=== PATIENT | female | born 1960 | race Caucasian/White ===

== ENCOUNTER 2023-06-20 16:22 | Inpatient (IN) | payer MEDICARE, SELFPAY ==
[2023-06-20] VITALS (7 sets, daily range): BP systolic 116–147; BP diastolic 71–108; PULSE 80–96; RESP 14–18; TEMP 36.3–36.7; O2SAT 92–94; BMI 31.8; BMI 32.3
[2023-06-20 18:04] LABS: Absolute Neutrophil Count 4.7 X10^3/uL (2.0-7.7); Basophil# 0.05 X10^3/uL; Basophil% 0.7 % (0-1); Eosinophils% 1.5 % (0-5); Hematocrit 42.9 % (37-47); Hemoglobin 13.6 g/dL (12.0-15.0); Lymphocyte % 20.9 % (19-41); Mean Corp Hgb Conc 31.7 g/dL (32-36); Mean Corpuscular Hgb 31.6 pg (27.0-32.0); Mean Corpuscular Volume 99.8 fL (81-99); Mean Platelet Vol. 10.1 fl (6.2-12.0); Monocyte# 0.42 X10^3/uL; Monocyte% 6.3 % (0-10); NRBC Flagged by Analyzer 0 % (0-5); Neutrophil % 70.3 % (47-70); Platelet Count 255 K/mm3 (150-450); RBC Distribution Width SD 50.6 fl (35.1-43.9); White Blood Count 6.7 K/mm3 (4.4-11.0)
[2023-06-20] MEDS: Mag Hydrox/Al Hydrox/Simeth 30 ML UDC PO (18:11)
--- NOTE | 2023-06-20 18:13 | NURSING ---
NO OLD EKGS
[2023-06-20 18:19] LABS: Alcohol, Blood (Medical)-Serum < 3.0 mg/dL
[2023-06-20 18:26] LABS: ALB/GLOB Ratio 1.1 RATIO (0.9-2.4); AST(SGOT) 45 U/L (15-37); Alanine Aminotransfer ALT/SGPT 40 U/L (13-56); Albumin, Serum 3.6 g/dL (3.2-5.0); Alkaline Phosphatase 219 U/L (45-117); Anion Gap 5 (5-15); BUN 6 mg/dL (7-18); BUN/Creat Ratio 6.2 RATIO (10-20); Calcium,Total 8.8 mg/dL (8.5-10.1); Chloride 104 mmol/L (98-107); Creatinine, Serum 0.97 mg/dL (0.55-1.02); EST Glomerular Filtration Rate 62 mL/min (>60); Est Glom Filt Rate - Afr Amer 74 mL/min (>60); Estimated Creatinine Clearance 62.84 ml/min; Globulin 3.3 g/dL (2.2-4.2); Glucose 118 mg/dL (74-106); Potassium 3.7 mmol/L (3.5-5.1); Protein, Total 6.9 g/dL (6.4-8.2); Sodium Level 140 mmol/L (136-145)
[2023-06-20 18:34] LABS: Lipase 12 U/L (13-75); Troponin-I HS 7 pg/mL (3.0-54.0)
--- NOTE | 2023-06-20 18:45 | EDS_ITS ---
HPI History of Present Illness Chief Complaint: Substance Abuse Informant: patient Narrative Narrative: Is a 62-year-old female with history of alcohol abuse, prior Niesen fundoplication presenting for alcohol detox. Patient states she drinks approximately 416 ounce alcoholic beverages a day. She states that she had last had 3 cans of Atilio hard lemonade this morning. She also notes for the past week she has been having chest pain that radiates up to her throat and neck and into her back every evening. It is worse with eating or drinking. She also she has been having some gurgling and rumbling of the head of her abdomen for the past 3 to 4 days. Does have a history of acid reflux. Does note a history of blood clots but is on Xarelto. States has been compliant with it. Denies any history of pancreatitis but notes that my liver is bad. Denies any difficulty breathing. Denies any recent falls. Denies any history of DTs. [facility] Medical History COPD (chronic obstructive pulmonary disease) Home Medications cholecalciferol (vitamin D3) 50 mcg (2,000 unit) capsule (D3-2000) 50 mcg PO DAILY 06/20/23 [History Last Taken Unknown] folic acid 1 mg tablet 5 mg PO QHS 06/20/23 [History Last Taken Unknown] lisinopril 10 mg tablet 10 mg PO DAILY 06/20/23 [History Last Taken Unknown] promethazine 25 mg tablet 25 mg PO TID PRN nausea and vomiting 06/20/23 [History Last Taken Unknown] rivaroxaban 20 mg tablet (Xarelto) 20 mg PO DAILY 06/20/23 [History Last Taken Unknown] Allergy/AdvReac Type Severity Reaction Status Date / Time No Known Allergies Allergy Verified 06/20/23 17:31 Social History Smoking Status: Former smoker ROS ROS ED Constitutional Constitutional ED: Denies chills or fever(s) Cardiovascular Cardiovascular: Reports chest pain; Denies palpitations Respiratory/Chest Respiratory/Chest: Denies cough or dyspnea Gastrointestinal Gastrointestinal: Reports nausea; Denies abdominal pain, diarrhea or vomiting Musculoskeletal Musculoskeletal: Denies arthralgias or myalgias Integumentary Denies rash Neurologic Neurologic: Denies headache(s) Psychiatric Psychiatric: Reports other Details: Alcohol abuse ; Denies anxiety EXAM Physical Exam Const Vital Signs: 06/20/23 16:24 06/20/23 17:48 06/20/23 18:23 Temperature 97.4 F L Temperature Source Temporal Pulse Rate 96 94 87 Respiratory Rate 16 18 18 Blood Pressure 127/108 H 147/81 H 131/75 H Blood Pressure Mean 114 103 93 Pulse Ox 94 93 93 Oxygen Delivery Method Room Air Room Air Room Air 06/20/23 20:01 Temperature 98.1 F Temperature Source Pulse Rate 85 Respiratory Rate 18 Blood Pressure 116/73 Blood Pressure Mean 87 Pulse Ox 92 Oxygen Delivery Method Positive well nourished and well developed General Appearance ED: well developed and NAD HEENT Reports moist mucous membranes Eyes PERRL Neck supple and no JVD Chest Wall inspection of chest normal and palpation of chest normal Chest Narrative: No chest wall crepitus or reproducible tenderness on exam Resp normal respiratory effort and clear to auscultation bilaterally Cardio regular rate, regular rhythm and no murmurs GI soft to palpation, non-tender and non-distended Neuro oriented x3 Neuro Narrative: No tremor noted, walks with a cane Sensorium / Orientation: alert Psych mental status grossly normal and thought process normal Skin General Skin Exam: Negative for jaundice Lesions: no lesions Rashes: no rashes MDM MDM MDM Narrative Medical decision making narrative: Evaluate for request of alcohol detox as well as chest pain. Chest pain is been occurring every evening for the past week and radiates to her neck. Seems to be worsened with eating and drinking. EKG as well as cardiac workup including chest x-ray and troponin were ordered however she is also given a GI cocktail with improvement of her symptoms. Patient has a normal CBC. CMP is remarkable for a mild elevation of her AST as well as alkaline phosphatase of 219. Lipase is normal so less likely suspect pancreatitis as a cause of her symptoms. Alcohol level is currently negative consistent with her report of not drinking since this morning. EKG does not show any acute ischemia. Patient be admitted for addiction medicine for alcohol dependency. This time she does not have signs of acute withdrawal and does not require IV Ativan. Case is discussed admitting physician, Dr. Dorantes. Lab Data Attestation: I reviewed the patient's lab results. Labs: Laboratory Results - last 24 hr 06/20/23 06/20/23 17:56 18:50 WBC 6.7 RBC 4.30 Hgb 13.6 Hct 42.9 MCV 99.8 H MCH 31.6 MCHC 31.7 L RDW Std Deviation 50.6 H RDW Coeff of Clemente 14.0 Plt Count 255 MPV 10.1 Immature Gran % (Auto) 0.300 Neut % (Auto) 70.3 H Lymph % (Auto) 20.9 [place] % (Auto) 6.3 Eos % (Auto) 1.5 Baso % (Auto) 0.7 Absolute Neuts (auto) 4.7 Absolute Lymphs (auto) 1.40 Nucleated RBC % 0 Sodium 140 Potassium 3.7 Chloride 104 Carbon Dioxide 31.0 Anion Gap 5 BUN 6 L Creatinine 0.97 Estim Creat Clear Calc 62.84 Est GFR (MDRD) Af Amer 74 Est GFR (MDRD) Non-Af 62 BUN/Creatinine Ratio 6.2 L Glucose 118 H Calcium 8.8 Total Bilirubin 0.50 AST 45 H ALT 40 Alkaline Phosphatase 219 H Troponin I High Sens 7 Total Protein 6.9 Albumin 3.6 Globulin 3.3 Albumin/Globulin Ratio 1.1 Lipase 12 L Urine Opiates Screen NEGATIVE Urine Methadone Screen NEGATIVE Ur Barbiturates Screen NEGATIVE Ur Phencyclidine Scrn NEGATIVE Ur Amphetamines Screen NEGATIVE MDMA (Ecstasy) Screen NEGATIVE U Benzodiazepines Scrn NEGATIVE Urine Cocaine Screen NEGATIVE U Cannabinoids Screen NEGATIVE Ur Drug Screen Comment Ethyl Alcohol < 3.0 Radiography Chest X-Ray - ED: 1 View, Read by ED Physician, Read by Radiologist and No Acute Disease Diagnostic Testing: Clinical Impression(s) from Imaging Studies Chest X-Ray 06/20/23 18:55 IMPRESSION: No radiographic evidence of acute cardiopulmonary disease. Electronically Signed: Hernandez Arteaga DO at 19:12 EST Reading Location ID and State: [facility] / [place] Tel [phone], Service support , Rhythm Strip Rhythm Strip: Sinus Rhythm Rate: 88 Ectopy: None EKG Initial EKG: Attestation: I personally reviewed and interpreted this EKG as follows: Interpretation: Sinus Rhythm Comments: Sinus rhythm at a rate of 89 bpm Normal axis Normal intervals Normal ST segments Prior EKG tracings: not available for review Discharge Plan Dx/Rx/DC Orders Clinical Impression: Alcohol withdrawal, Atypical chest pain Disposition Disposition: Acute Care Hospital [facility] Discharge Date/Time: 06/20/23 21:14
--- NOTE | 2023-06-20 18:55 | RAD_ITS ---
INDICATION: chest pain EXAMINATION/TECHNIQUE: X-RAY - XR Chest 2 Views COMPARISON: FINDINGS: LINES/DEVICES: None. LUNGS: No consolidation, edema or effusion. No pneumothorax. MEDIASTINUM AND CARDIOVASCULAR STRUCTURES: Cardiac silhouette not enlarged. Central airways and mediastinal contour are unremarkable. BONES AND SOFT TISSUES: Unremarkable. RAD/Chest PA and Lateral IMPRESSION: No radiographic evidence of acute cardiopulmonary disease. Electronically Signed: Hernandez Arteaga DO at 19:12 [facility] Reading Location ID and State: [facility] / [place] Tel [phone], Service support ,
[2023-06-20 19:45] LABS: Amphetamine Urine VISTA NEGATIVE (<1000 ng/mL); Barbiturate Urine VISTA NEGATIVE (< 200 ng/mL); Benzodiazepine Urine VISTA NEGATIVE (< 200 ng/mL); Cocaine Urine VISTA NEGATIVE (< 300 ng/mL); Ecstacy Urine VISTA NEGATIVE (< 500 ng/mL); Methadone Urine VISTA NEGATIVE (< 300 ng/mL); PCP Urine VISTA NEGATIVE (< 25 ng/mL); THC Urine VISTA NEGATIVE (< 50 ng/mL); Vista UDS pH Range 6
[2023-06-20] MEDS: Pantoprazole Sodium 40 MG Tablet PO (20:06)
--- NOTE | 2023-06-20 20:36 | PCM.HP.STD ---
HPI - General General Date of Admission: 06/20/23 Date of Service: 06/20/23 Chief Complaint: Inpatient alcohol detoxification HPI Narrative JESSICA FERRARI, is a 62 F with history of prior chronic GERD s/p Jt fundoplication, pulmonary embolism on Xarelto presents to the ED for inpatient detoxification. She has a history of chronic alcohol use, uses 4 drinks 4 cans of Atilio's Harder lemonade (8% ABV) every day. Today she had 3 cans of the same. Unable to maintain sobriety at home and would like pharmacological therapy through inpatient admission At the time of presentation she had associated burning discomfort in her chest and abdomen. Troponin levels and EKG were normal. Significant improvement with GI cocktail. [facility] Medical History (Updated 06/20/23 @ 22:[address] Kenisha Dorantes MD) COPD (chronic obstructive pulmonary disease) Home Medications cholecalciferol (vitamin D3) 50 mcg (2,000 unit) capsule (D3-2000) 50 mcg PO DAILY 06/20/23 [History Last Taken Unknown] folic acid 1 mg tablet 5 mg PO QHS 06/20/23 [History Last Taken Unknown] lisinopril 10 mg tablet 10 mg PO DAILY 06/20/23 [History Last Taken Unknown] promethazine 25 mg tablet 25 mg PO TID PRN nausea and vomiting 06/20/23 [History Last Taken Unknown] rivaroxaban 20 mg tablet (Xarelto) 20 mg PO DAILY 06/20/23 [History Last Taken Unknown] Allergy/AdvReac Type Severity Reaction Status Date / Time No Known Allergies Allergy Verified 06/20/23 17:31 Social History Smoking Status: Former smoker ROS Constitutional Constitutional: Denies anorexia, change in weight, chills, fatigue, fever(s), malaise, night sweats, weakness or other Cardiovascular Cardiovascular: Denies chest pain, claudication, dyspnea on exertion, edema, lightheadedness, orthopnea, palpitations, paroxysmal nocturnal dyspnea, rapid heart rate, syncope or other Respiratory/Chest Respiratory/Chest: Denies cough, dyspnea, excessive phlegm production, hemoptysis, productive cough, shortness of breath at rest, shortness of breath with exertion, wheezing or other Gastrointestinal Gastrointestinal: Reports abdominal pain Genitourinary Genitourinary: Denies burning urination, difficulty urinating, dysuria, hematuria, nocturia, urinary frequency, urinary hesitancy, urinary incontinence, urinary urgency or other Musculoskeletal Musculoskeletal: Denies arthralgias, back pain, joint pain, joint stiffness, joint swelling, myalgias, neck pain or other Psychiatric Psychiatric: Denies anxiety, depression, homicidal ideation, suicidal ideation or other Vital Signs Vital Signs Vital Signs: 06/20/23 16:24 06/20/23 17:48 06/20/23 18:23 Temperature 97.4 F L Temperature Source Temporal Pulse Rate 96 94 87 Respiratory Rate 16 18 18 Blood Pressure 127/108 H 147/81 H 131/75 H Blood Pressure Mean 114 103 93 Pulse Ox 94 93 93 Oxygen Delivery Method Room Air Room Air Room Air 06/20/23 20:01 Temperature 98.1 F Temperature Source Pulse Rate 85 Respiratory Rate 18 Blood Pressure 116/73 Blood Pressure Mean 87 Pulse Ox 92 Oxygen Delivery Method Weight Weight: 216 lb Body Mass Index (BMI) 31.8 Physical Exam Const alert, oriented x3 and no apparent distress General Appearance: cooperative Resp normal respiratory effort Cardio regular rate Extremity normal to inspection Neuro oriented x3 Results Medical Records Data Attestation: I reviewed the patient's medical records Lab / Micro Data Attestation: I reviewed the patient's lab results. Lab results narrative: Normal 06/20/23 17:56 06/20/23 17:56 Labs: Laboratory Results - last 24 hr 06/20/23 17:56: WBC 6.7, RBC 4.30, Hgb 13.6, Hct 42.9, MCV 99.8 H, MCH 31.6, MCHC 31.7 L, RDW Std Deviation 50.6 H, RDW Coeff of Clemente 14.0, Plt Count 255, MPV 10.1, Immature Gran % (Auto) 0.300, Neut % (Auto) 70.3 H, Lymph % (Auto) 20.9, [place] % (Auto) 6.3, Eos % (Auto) 1.5, Baso % (Auto) 0.7, Absolute Neuts (auto) 4.7, Absolute Lymphs (auto) 1.40, Nucleated RBC % 0, Sodium 140, Potassium 3.7, Chloride 104, Carbon Dioxide 31.0, Anion Gap 5, BUN 6 L, Creatinine 0.97, Estim Creat Clear Calc 62.84, Est GFR (MDRD) Af Amer 74, Est GFR (MDRD) Non-Af 62, BUN/Creatinine Ratio 6.2 L, Glucose 118 H, Calcium 8.8, Total Bilirubin 0.50, AST 45 H, ALT 40, Alkaline Phosphatase 219 H, Troponin I High Sens 7, Total Protein 6.9, Albumin 3.6, Globulin 3.3, Albumin/Globulin Ratio 1.1, Lipase 12 L, Ethyl Alcohol < 3.0 06/20/23 18:50: Urine Opiates Screen NEGATIVE, Urine Methadone Screen NEGATIVE, Ur Barbiturates Screen NEGATIVE, Ur Phencyclidine Scrn NEGATIVE, Ur Amphetamines Screen NEGATIVE, MDMA (Ecstasy) Screen NEGATIVE, U Benzodiazepines Scrn NEGATIVE, Urine Cocaine Screen NEGATIVE, U Cannabinoids Screen NEGATIVE, Ur Drug Screen Comment Imagaing Radiology Impression Chest X-Ray 06/20/23 18:55 IMPRESSION: No radiographic evidence of acute cardiopulmonary disease. Electronically Signed: Hernandez Arteaga, DO at 19:12 EST Reading Location ID and State: [facility] / [place] Tel [phone], Service support , Assessment & Plan Assessment/Plan (1) Alcohol withdrawal: PLAN: Plan 1. Alcohol use disorder: Has longstanding history of chronic alcohol use, predominantly cocktails. Her last drink was this morning, will continue to monitor for any features of withdrawal. CIWA protocol has been started. Admit for further monitoring. Based on her response we will consider starting her on naltrexone to decrease her cravings. No liver injury concerning for steatosis or cirrhosis at this time. 2. Hypercoagulable status, prior history of pulm embolism: Continue home Xarelto during her hospitalization. 3. Prior history of GERD, Jt fundoplication: There is improvement with GI cocktail, will start her on omeprazole 40 mg daily, follow-up with GI as an outpatient if required upper endoscopy for further evaluation. Charges/Coding Visit Charges Inpatient E&M: 01984 Init Hosp L2
[2023-06-20] MEDS: LORazepam 1 MG Tablet 0.5 MG PO (22:28)
[2023-06-20] MEDS: Ondansetron 8 MG Tablet PO (22:31)
[2023-06-20] MEDS: traZODone 100 MG Tablet PO (23:36)
[2023-06-21] VITALS (8 sets, daily range): BP systolic 89–115; BP diastolic 53–76; PULSE 78–97; RESP 13–16; TEMP 36.3–37.4; O2SAT 64–96
[2023-06-21] MEDS: LORazepam 1 MG Tablet 0.5 MG PO ×5 (05:23→22:33)
--- NOTE | 2023-06-21 07:27 | PCM.PN.HOSP ---
Reason for Visit Reason for Visit: Diagnoses Alcohol use, unspecified with withdrawal, unspecified (06/20/23) Objective Data Objective Data Vital Signs: Vital Signs Temp Pulse Resp BP Pulse Ox O2 Del Method O2 Flow Rate 97.8 F 80 16 101/66 96 Nasal Cannula 2 06/21/23 05:10 06/21/23 05:10 06/21/23 05:10 06/21/23 05:10 06/21/23 05:10 06/21/23 05:10 06/21/23 05:10 Oxygen Flow Rate (L/min) 2 Oxygen Delivery Method Nasal Cannula Weight: 212 lb 4.882 oz Body Mass Index (BMI) 32.3 Intake & Output: Intake and Output for Last 24 Hours 06/19/23 06/20/23 06/21/23 23:59 23:59 23:59 Intake Total 100 / 100 100 / 100 Balance 100 / 100 100 / 100 Lab / Micro Data 06/21/23 11:45 06/21/23 11:45 Labs: Laboratory Results - last 24 hr 06/20/23 17:56: WBC 6.7, RBC 4.30, Hgb 13.6, Hct 42.9, MCV 99.8 H, MCH 31.6, MCHC 31.7 L, RDW Std Deviation 50.6 H, RDW Coeff of Clemente 14.0, Plt Count 255, MPV 10.1, Immature Gran % (Auto) 0.300, Neut % (Auto) 70.3 H, Lymph % (Auto) 20.9, [place] % (Auto) 6.3, Eos % (Auto) 1.5, Baso % (Auto) 0.7, Absolute Neuts (auto) 4.7, Absolute Lymphs (auto) 1.40, Nucleated RBC % 0, Sodium 140, Potassium 3.7, Chloride 104, Carbon Dioxide 31.0, Anion Gap 5, BUN 6 L, Creatinine 0.97, Estim Creat Clear Calc 62.84, Est GFR (MDRD) Af Amer 74, Est GFR (MDRD) Non-Af 62, BUN/Creatinine Ratio 6.2 L, Glucose 118 H, Calcium 8.8, Total Bilirubin 0.50, AST 45 H, ALT 40, Alkaline Phosphatase 219 H, Troponin I High Sens 7, Total Protein 6.9, Albumin 3.6, Globulin 3.3, Albumin/Globulin Ratio 1.1, Lipase 12 L, Ethyl Alcohol < 3.0 06/20/23 18:50: Urine Opiates Screen NEGATIVE, Urine Methadone Screen NEGATIVE, Ur Barbiturates Screen NEGATIVE, Ur Phencyclidine Scrn NEGATIVE, Ur Amphetamines Screen NEGATIVE, MDMA (Ecstasy) Screen NEGATIVE, U Benzodiazepines Scrn NEGATIVE, Urine Cocaine Screen NEGATIVE, U Cannabinoids Screen NEGATIVE, Ur Drug Screen Comment Radiography Diagnostic Testing: Radiology Impression Chest X-Ray 06/20/23 18:55 IMPRESSION: No radiographic evidence of acute cardiopulmonary disease. Electronically Signed: Hernandez Arteaga DO at 19:12 EST Reading Location ID and State: [facility] / [place] Tel [phone], Service support , Rhythm Strip Rhythm Strip: Sinus Rhythm Rate: 88 Ectopy: None Physical Exam Narrative Patient admitted for medical stabilization of acute alcohol withdrawal syndrome. Patient does not have hallucinations or bad dreams. No delusion. Patient motivated for alcohol rehab treatment. Physical exam General: Alert, Oriented x3, Cooperative HEENT: Atraumatic, PERRLA, EOMI, Normocephalic Oral: No Gingival or Mucosal Lesions/ Ulcerations Neck: Supple, No JVD, Negative Carotid Bruits Lungs: Air entry diminished in bilateral lung bases. No crepitation/rhonchi Cardiovascular: Regular rate, Regular Rhythm, Normal S1, Normal S2, No murmurs Abdomen: Bowel Sounds Present, Soft, Non Tender, Non-Distended : No renal angle tenderness. No suprapubic tenderness. Extremities: No edema, Capillary Refill Less than 3 Seconds Skin: No rashes, No breakdown Musculoskeletal: No Tenderness to Palpation of Joints or Extremities Neurological: Cranial nerves II-XII grossly intact, DTR 2+/4. No acute focal neurological deficit. Psych/Mental Status: Normal Affect, Appropriate. Assessment & Plan Assessment/Plan (1) Alcohol withdrawal: PLAN: Plan 62-year-old female came to ED for acute alcohol withdrawal symptoms. Patient drinks 4 cans of mikes hard lemonade, 8% alcohol every day. She had associated burning discomfort in the chest and abdomen with history of chronic GERD status post Jt's fundoplication 1. Mild acute alcohol withdrawal syndrome with history of chronic alcohol use and dependence: The patient is started on lorazepam along with other adjunctive medications as needed for medical stabilization as per order set of opioid withdrawal syndrome.Patient also on trazodone, hydroxyzine, gabapentin as needed ordered. Advised quitting alcohol. revenue accounting manager consult. Has longstanding history of chronic alcohol use, predominantly cocktails. Her last drink was this morning. CIWA protocol has been started. Admit for further monitoring. No liver injury concerning for steatosis or cirrhosis at this time. Patient was evaluated by addiction medicine by Parveen Dyer. Followed [facility] addiction recovery service. Patient met requirement for Vivitrol and ordered Vivitrol IM dose prior to discharge on Friday. 2. Hypercoagulable status, prior history of pulm embolism: Continue home Xarelto during her hospitalization. 3. Prior history of GERD, Jt fundoplication: There is improvement with GI cocktail, will start her on omeprazole 40 mg daily, follow-up with GI as an outpatient if required upper endoscopy for further evaluation. Charges/Coding Visit Charges Inpatient E&M: 70511 Subs Hosp L2
[2023-06-21] MEDS: Potassium Chloride Oral Tablet 20 MEQ 40 MEQ PO (08:37)
[2023-06-21] MEDS: Lisinopril 10 MG Tablet PO (08:37)
[2023-06-21] MEDS: Thiamine Hydrochloride 100 MG Tablet PO (08:37)
--- NOTE | 2023-06-21 11:34 | ADDICTION ---
This food writer met with PT to conduct ASAM, MSE, AUDIT assessments and to plan for d/c. PT A+Ox4 and participated actively. All assessments completed and placed in PT's chart. PT plans to f/u with [facility] for follow-up outpatient treatment and MAT services. Pt met requirements for the VIvitrol shot prior to dischard. Dr. Roth was informed and order has been placed. Pt will follow up with [facility] for monthly injections post d/c. PT did not indicate a need for transportation post d/c from [facility].
[2023-06-21 12:00] LABS: Absolute Neutrophil Count 4.1 X10^3/uL (2.0-7.7); Basophil# 0.03 X10^3/uL; Basophil% 0.5 % (0-1); Eosinophil# 0.14 X10^3/uL; Eosinophils% 2.5 % (0-5); Hematocrit 41.7 % (37-47); Hemoglobin 13.1 g/dL (12.0-15.0); Lymphocyte % 17.5 % (19-41); Mean Corp Hgb Conc 31.4 g/dL (32-36); Mean Corpuscular Hgb 32.7 pg (27.0-32.0); Mean Platelet Vol. 10.2 fl (6.2-12.0); Monocyte# 0.41 X10^3/uL; Monocyte% 7.2 % (0-10); NRBC Flagged by Analyzer 0 % (0-5); Neutrophil # 4.11 X10^3/uL (2.7-7.7); Neutrophil % 72.1 % (47-70); Platelet Count 247 K/mm3 (150-450); RBC Distribution Width CV 14.1 % (11.6-14.6); RBC Distribution Width SD 53.3 fl (35.1-43.9); Red Blood Count 4.01 M/mm3 (4.2-5.4); White Blood Count 5.7 K/mm3 (4.4-11.0)
[2023-06-21 12:17] LABS: ALB/GLOB Ratio 0.9 RATIO (0.9-2.4); AST(SGOT) 38 U/L (15-37); Alanine Aminotransfer ALT/SGPT 35 U/L (13-56); Albumin, Serum 3.1 g/dL (3.2-5.0); Alkaline Phosphatase 200 U/L (45-117); Anion Gap 3 (5-15); BUN 8 mg/dL (7-18); BUN/Creat Ratio 7.3 RATIO (10-20); Bilirubin, Direct 0.19 mg/dL (0.00-0.30); Calcium,Total 8.6 mg/dL (8.5-10.1); Chloride 106 mmol/L (98-107); EST Glomerular Filtration Rate 53 mL/min (>60); Est Glom Filt Rate - Afr Amer 65 mL/min (>60); Estimated Creatinine Clearance 53.49 ml/min; Globulin 3.3 g/dL (2.2-4.2); Glucose 138 mg/dL (74-106); Magnesium 2.2 mg/dL (1.6-2.6); Phosphorus 3.5 mg/dL (2.5-4.9); Potassium 4.5 mmol/L (3.5-5.1); Protein, Total 6.4 g/dL (6.4-8.2); Sodium Level 142 mmol/L (136-145)
[2023-06-21 12:18] LABS: International Normalized Ratio 1.1
[2023-06-21] MEDS: Rivaroxaban 20 MG Tablet PO (17:51)
[2023-06-21] MEDS: hydrOXYzine PAM 25 MG Capsule 50 MG PO (18:00)
--- NOTE | 2023-06-21 18:02 | NURSING ---
NOTHING ORDERED FOR H/A. COMMUNICATION SENT TO DR MURPHY
[2023-06-21] MEDS: Folic Acid 1 MG Tablet PO (22:33)
[2023-06-22 02:26] VITALS: BP 109/66; PULSE 79; RESP 18; TEMP 36.6; O2SAT 95
[2023-06-22] MEDS: LORazepam 1 MG Tablet 0.5 MG PO ×6 (02:27→22:14)
[2023-06-22 06:16] VITALS: BP 108/71; PULSE 87; RESP 16; TEMP 36.6; O2SAT 95
[2023-06-22 10:00] VITALS: BP 104/63; PULSE 94; RESP 14; TEMP 36.2; O2SAT 91
[2023-06-22] MEDS: Potassium Chloride Oral Tablet 20 MEQ 40 MEQ PO (10:17)
[2023-06-22] MEDS: Thiamine Hydrochloride 100 MG Tablet PO (10:18)
[2023-06-22] MEDS: Lisinopril 10 MG Tablet PO (10:18)
[2023-06-22 14:00] VITALS: BP 100/65; PULSE 85; RESP 14; TEMP 36.4; O2SAT 89; O2SAT 99
--- NOTE | 2023-06-22 14:59 | PCM.PN.HOSP ---
Reason for Visit Reason for Visit: Diagnoses Alcohol use, unspecified with withdrawal, unspecified (06/20/23) Objective Data Objective Data Vital Signs: Vital Signs Temp Pulse Resp BP Pulse Ox O2 Del Method O2 Flow Rate 97.6 F L 85 14 100/65 99 Nasal Cannula 2 06/22/23 14:00 06/22/23 14:00 06/22/23 14:00 06/22/23 14:00 06/22/23 14:00 06/22/23 14:00 06/22/23 14:00 Oxygen Flow Rate (L/min) 2 Oxygen Delivery Method Nasal Cannula Weight: 212 lb 4.882 oz Body Mass Index (BMI) 32.3 Intake & Output: Intake and Output for Last 24 Hours 06/20/23 06/21/23 06/22/23 23:59 23:59 23:59 Intake Total 100 / 100 100 / 100 Balance 100 / 100 100 / 100 Lab / Micro Data 06/21/23 11:45 06/21/23 11:45 Rhythm Strip Rhythm Strip: Sinus Rhythm Rate: 88 Ectopy: None Physical Exam Narrative Patient admitted for medical stabilization of acute alcohol withdrawal syndrome. Patient is doing well. Tremor is better. Patient does not have hallucinations or bad dreams. No delusion. Patient motivated for alcohol rehab treatment. Physical exam General: Alert, Oriented x3, Cooperative HEENT: Atraumatic, PERRLA, EOMI, Normocephalic Oral: No Gingival or Mucosal Lesions/ Ulcerations Neck: Supple, No JVD, Negative Carotid Bruits Lungs: Air entry diminished in bilateral lung bases. No crepitation/rhonchi Cardiovascular: Regular rate, Regular Rhythm, Normal S1, Normal S2, No murmurs Abdomen: Bowel Sounds Present, Soft, Non Tender, Non-Distended : No renal angle tenderness. No suprapubic tenderness. Extremities: No edema, Capillary Refill Less than 3 Seconds Skin: No rashes, No breakdown Musculoskeletal: No Tenderness to Palpation of Joints or Extremities. Tremors are improved. Neurological: Cranial nerves II-XII grossly intact, DTR 2+/4. No acute focal neurological deficit. Psych/Mental Status: Normal Affect, Appropriate. Assessment & Plan Assessment/Plan (1) Alcohol withdrawal: PLAN: Plan 62-year-old female came to ED for acute alcohol withdrawal symptoms. Patient drinks 4 cans of mikes hard lemonade, 8% alcohol every day. She had associated burning discomfort in the chest and abdomen with history of chronic GERD status post Jt's fundoplication 1. Mild acute alcohol withdrawal syndrome with history of chronic alcohol use and dependence: The patient is started on lorazepam along with other adjunctive medications as needed for medical stabilization as per order set of opioid withdrawal syndrome.Patient also on trazodone, hydroxyzine, gabapentin as needed ordered. Advised quitting alcohol. finishing manager consult. Has longstanding history of chronic alcohol use, predominantly cocktails. Her last drink was this morning. CIWA protocol has been started. Admit for further monitoring. No liver injury concerning for steatosis or cirrhosis at this time. Patient was evaluated by addiction medicine by Parveen Dyer. Followed [facility] addiction recovery service. Patient met requirement for Vivitrol and ordered Vivitrol IM dose prior to discharge on Friday. 06/22: Anticipate discharge tomorrow after Vivitrol IM injection as mentioned above. Patient will follow up with 180. 2. Hypercoagulable status, prior history of pulm embolism: Continue home Xarelto during her hospitalization. 3. Prior history of GERD, Jt fundoplication: There is improvement with GI cocktail, will start her on omeprazole 40 mg daily, follow-up with GI as an outpatient if required upper endoscopy for further evaluation. Charges/Coding Visit Charges Inpatient E&M: 85229 Subs Hosp L2
--- NOTE | 2023-06-22 15:59 | NURSING ---
DR MURPHY NOTIFIED OF APPLICATION OF O2@2L
[2023-06-22 17:32] VITALS: O2SAT 93
[2023-06-22] MEDS: Rivaroxaban 20 MG Tablet PO (18:19)
[2023-06-22 22:12] VITALS: BP 114/72; PULSE 96; RESP 18; TEMP 37; O2SAT 94
[2023-06-22] MEDS: Folic Acid 1 MG Tablet PO (22:14)
[2023-06-23] VITALS (12 sets, daily range): BP systolic 103–110; BP diastolic 67–75; PULSE 77–101; RESP 14–18; TEMP 36.4–37; O2SAT 88–98
--- NOTE | 2023-06-23 01:53 | CPS ---
Patient is non-compliant at home with CPAP but wishes to wear one during her hospital stay per RN
[2023-06-23] MEDS: LORazepam 1 MG Tablet 0.5 MG PO ×3 (02:35→12:01)
[2023-06-23] MEDS: Gabapentin 300 MG Capsule PO (02:35)
[2023-06-23] MEDS: Potassium Chloride Oral Tablet 20 MEQ 40 MEQ PO (09:37)
[2023-06-23] MEDS: Thiamine Hydrochloride 100 MG Tablet PO (09:37)
[2023-06-23 09:44] LABS: ALB/GLOB Ratio 0.9 RATIO (0.9-2.4); AST(SGOT) 29 U/L (15-37); Alanine Aminotransfer ALT/SGPT 28 U/L (13-56); Alkaline Phosphatase 173 U/L (45-117); Anion Gap 5 (5-15); BUN 13 mg/dL (7-18); BUN/Creat Ratio 13.8 RATIO (10-20); Calcium,Total 8.7 mg/dL (8.5-10.1); Chloride 105 mmol/L (98-107); Creatinine, Serum 0.94 mg/dL (0.55-1.02); EST Glomerular Filtration Rate 64 mL/min (>60); Est Glom Filt Rate - Afr Amer 78 mL/min (>60); Globulin 3.2 g/dL (2.2-4.2); Glucose 122 mg/dL (74-106); Potassium 4.5 mmol/L (3.5-5.1); Protein, Total 6.2 g/dL (6.4-8.2); Sodium Level 140 mmol/L (136-145)
--- NOTE | 2023-06-23 13:10 | DCINST_ITS ---
Discharge Instructions Diet Discharge Diet: Low fat / Low cholesterol Activity Discharge Activity: Return to Normal Activity Weight Bearing Status: Weight bearing as tolerated Dressing / Incision Call your doctor if you observe: Fever of 101 or Higher, Shortness of breath, Dizziness, Swelling in the ankles and Chest pain Follow Up Care Test Results: Test results from this visit will be discussed in further detail at your follow- up appointment, if applicable. Discharge Plan Admission Admit Date/Time: 06/20/23 20:42 Primary Reason for Your Visit: acute alcohol withdrawal Attending Provider: Loren Feldman Primary Care Provider: Tim Nath,Janee Primary Consulting Providers: Kenisha Dorantes; John Roth Instructions Patient Instructions: Alcohol Addiction, Alcohol Withdrawal: What to Expect, ED Alcohol Abuse Discharge Orders/Prescriptions Prescriptions: Continued promethazine 25 mg tablet 25 mg PO TID PRN (Reason: nausea and vomiting) lisinopril 10 mg tablet 10 mg PO DAILY Xarelto 20 mg tablet 20 mg PO DAILY Rx Instructions: must administer with evening meal cholecalciferol (vitamin D3) [D3-2000] 50 mcg (2,000 unit) capsule 50 mcg PO DAILY folic acid 1 mg tablet 1 mg PO QHS Patient Comments: TAKE 1 TABLET BY MOUTH EVERY NIGHT AT BEDTIME. Referrals / Follow Up: Care Physician,No Primary [Primary Care Provider] - Disposition Disposition (needs filled in before D/C Order can be placed): Home, Self Care
--- NOTE | 2023-06-23 13:10 | PCM.DC.SUM ---
Providers Date of Admission: 06/20/23 Date of Discharge: 06/23/23 Primary Care Physician: No Primary Care Phys Reason For Visit: ALCOHOL USE DISORDER Diagnosis Discharge Diagnosis (1) Alcohol withdrawal: Status: Acute Code(s): F10.939 - Alcohol use, unspecified with withdrawal, unspecified Medications at Discharge Home Medications cholecalciferol (vitamin D3) 50 mcg (2,000 unit) capsule (D3-2000) 50 mcg PO DAILY 06/20/23 folic acid 1 mg tablet 1 mg PO QHS supplem 06/20/23 lisinopril 10 mg tablet 10 mg PO DAILY 06/20/23 promethazine 25 mg tablet 25 mg PO TID PRN nausea and vomiting 06/20/23 rivaroxaban 20 mg tablet (Xarelto) 20 mg PO DAILY 06/20/23 Hospital Course Procedures None Summary of Care Provided Minutes Spent on Discharge: 55 Hospital Course: Patient is a 62-year-old female with a past medical history as outlined which includes PE on Xarelto as well as chronic GERD s/p Jt fundoplication. She was admitted via the ED on 06/20/2023 for acute alcohol withdrawal. She drinks about 4 cans of beer every day and could maintain sobriety at home. On admission she complained of burning discomfort in her chest and abdomen which resolved with GI cocktail. Urine tox was negative and serum alcohol level was less than 3. She was admitted and managed for alcohol detox. She was started on alcohol withdrawal protocol with phenobarbital, with adjunctive meds for symptomatic relief. Patient met requirement for Vivitrol and so she was given a dose of Vivitrol on 06/23/2023. LFTs were checked and were not elevated and within normal range. Her Xarelto was continued during her admission. She tolerated the 3-day detox process and did well. She was discharged to [facility] on 06/23/2023. She is follow-up with PCP within 1 to 2 weeks. Patient seen and examined prior to discharge. She felt well and had no complaints. She had an uneventful night. Review of systems otherwise negative. Labs and vitals reviewed. Home medication reviewed and reconciled. Physical Exam Const alert, oriented x3 and no apparent distress General Appearance: cooperative, comfortable and well kempt Orientation / Consciousness: awake Exam Limitations: no limitations HEENT normocephalic, head/scalp atraumatic, hearing grossly normal bilaterally, moist oral mucous membranes and oropharynx normal Mouth: oral and palatal mucosa normal Eyes PERRL, EOMs intact bilaterally and conjunctivae normal Neck no lymphadenopathy and supple Resp normal respiratory effort, no retractions, no use of accessory muscles and clear to auscultation bilaterally Cardio regular rate, regular rhythm, S1 normal heart sound, S2 normal heart sound and no murmurs GI normal to inspection, nondistended, normoactive bowel sounds, soft to palpation, non-tender and non-distended Extremity normal to inspection, full ROM and no clubbing, cyanosis or edema Skin no rashes or lesions noted Neuro oriented x3, CN's II-XII intact bilaterally, moves all extremities and no focal motor deficits Sensorium / Orientation: awake and alert Motor Exam: strength 5/5 throughout Psych affect normal Weight / BMI Weight Weight: 212 lb 4.882 oz Body Mass Index (BMI) 32.3 ABG / Lab / Microbiology Data 06/21/23 11:45 06/23/23 08:45 Laboratory: Laboratory Results - last 24 hr 06/23/23 08:45: Sodium 140, Potassium 4.5, Chloride 105, Carbon Dioxide 30.0, Anion Gap 5, BUN 13, Creatinine 0.94, Estim Creat Clear Calc 62.60, Est GFR (MDRD) Af Amer 78, Est GFR (MDRD) Non-Af 64, BUN/Creatinine Ratio 13.8, Glucose 122 H, Calcium 8.7, Total Bilirubin 0.30, AST 29, ALT 28, Alkaline Phosphatase 173 H, Total Protein 6.2 L, Albumin 3.0 L, Globulin 3.2, Albumin/Globulin Ratio 0.9 D/C Instructions Discharge Diet: Low fat / Low cholesterol Discharge Activity: Return to Normal Activity Weight Bearing Status: Weight bearing as tolerated Call your doctor if you observe: Fever of 101 or Higher, Shortness of breath, Dizziness, Swelling in the ankles and Chest pain Meaningful Use Info Meaningful Use Diagnoses (Choose all that apply): None applicable Discharge Plan Admission Admit Date/Time: 06/20/23 20:42 Primary Reason for Your Visit: acute alcohol withdrawal Attending Provider: Loren Feldman Primary Care Provider: Care Physician,No Primary Consulting Providers: Kenisha Dorantes; John Roth Instructions Patient Instructions: Alcohol Addiction, Alcohol Withdrawal: What to Expect, ED Alcohol Abuse Discharge Orders/Prescriptions Prescriptions: Continued promethazine 25 mg tablet 25 mg PO TID PRN (Reason: nausea and vomiting) lisinopril 10 mg tablet 10 mg PO DAILY Xarelto 20 mg tablet 20 mg PO DAILY Rx Instructions: must administer with evening meal cholecalciferol (vitamin D3) [D3-2000] 50 mcg (2,000 unit) capsule 50 mcg PO DAILY folic acid 1 mg tablet 1 mg PO QHS Patient Comments: TAKE 1 TABLET BY MOUTH EVERY NIGHT AT BEDTIME. Referrals / Follow Up: Care Physician,No Primary [Primary Care Provider] - Disposition Disposition (needs filled in before D/C Order can be placed): Home, Self Care Charges/Coding Visit Charges Inpatient E&M: 85444 Disch Hosp >30min
--- NOTE | 2023-06-23 14:14 | PHA.DC.MR.R ---
Pharmacy [place] Med Reconciliation Pharmacy Service has performed discharge medication reconciliation for this patient. The patient's discharge medication list was reviewed for discrepancies and discrepancies were resolved. Medications at Discharge Home Medications cholecalciferol (vitamin D3) 50 mcg (2,000 unit) capsule (D3-2000) 50 mcg PO DAILY 06/20/23 folic acid 1 mg tablet 1 mg PO QHS supplem 06/20/23 lisinopril 10 mg tablet 10 mg PO DAILY 06/20/23 promethazine 25 mg tablet 25 mg PO TID PRN nausea and vomiting 06/20/23 rivaroxaban 20 mg tablet (Xarelto) 20 mg PO DAILY 06/20/23
--- NOTE | 2023-06-23 15:38 | CHAPLAIN ---
Type of Pastoral Visit _x__ Initial Visit ___ Follow-up Visit ___ On-call Visit ___ General Patient Visit ___ Spiritual Assessment ___ Family Conference ___ Bereavement ___ Rapid Response ___ Code Blue ___ Other (describe below) Pastoral Care Referral From _x__ Patient ___ Family ___ Nurse ___ Physician ___ Dial Lathe Operator ___ Heavy Equipment Operator ___ Other (describe below) Sacrament/Intervention _x__ Active listening ___ Anointing ___ Episcopalian ___ Bereavement ___ Communion ___ Jany exploration ___ ___ Life review _x__ Prayer ___ Reconciliation ___ Sacrament of Sick _x__ Supportive presence ___ Wedding ___ Other (describe below) Pastoral Comments patient reports on reasons why she came to the hospital for RAMP program; pt answers questions but does not initiate much in the conversation; pt was in a jany community many years ago but has not in recent times; pt is welcoming of prayer support
--- NOTE | 2023-06-23 17:22 | CASEMGMT ---
JUSTEN HINKLE notified that pt may need home oxygen. JUSTEN HINKLE spoke with pt nurse and pt. Pt slow to answer questions, could not recall phone number. Pt states she lives with her in a two story home with 2 steps to enter. She states she typically uses a cane but is needing a walker here. She does have a walker at home. Pt states her had knee surgery and cannot drive. States there is someone in [place] that will pick her up but she cannot recall the name of the agency. She states she has the phone number in her purse that is locked up. Pt is aware that currently she is requiring oxygen, discussed home oxygen. Pt does not feel her can assister her at home d/t surgery. States that she is shaky today when walking and this is not normal for her. Updated charge nurse. TC to pt per pt request to make aware that pt may or may not be home today. He states he can assist her at home and confirms pt has a walker. He is unsure of the name of the agency to take pt home but states it is the same one who dropped her off.
[2023-06-23] MEDS: Rivaroxaban 20 MG Tablet PO (18:25)
[2023-06-23] MEDS: Folic Acid 1 MG Tablet PO (20:18)
[2023-06-24 04:00] VITALS: BP 106/70; PULSE 86; RESP 17; TEMP 36.8; O2SAT 97
--- NOTE | 2023-06-24 04:05 | NURSING ---
Pt more awake. pt walked to the bathroom w walker and sba. Pt a little unsteady.
--- NOTE | 2023-06-24 07:16 | PCM.PROGNOTE ---
Subjective Subjective DELAYED ENTRY NOTE FOR 06/23/2023 Patient was seen and examined on 06/23/2023. She had felt well and had no complaints. She had an uneventful night. She was due for discharge yesterday, and I had been informed by case management that she could be discharged to [facility] inpatient facility. Patient was therefore discharged. I was however informed in the evening by nursing that [facility] was actually an outpatient facility and patient was to be discharged home with home health. Patient was also feeling weaker and was a 2 person assist. Discharge was therefore cancelled. Review of systems was otherwise negative. Objective Data Objective Data Vital Signs: Vital Signs Temp Pulse Resp BP Pulse Ox O2 Del Method O2 Flow Rate 98.3 F 86 17 106/70 97 Room Air 2 06/24/23 04:00 06/24/23 04:00 06/24/23 04:00 06/24/23 04:00 06/24/23 04:00 06/24/23 04:00 06/23/23 23:20 Oxygen Flow Rate (L/min) [At 2 REST with Oxygen] Oxygen Flow Rate (L/min) [ 2 AMBULATING with Oxygen #1] Oxygen Flow Rate (L/min) 2 Oxygen Delivery Method Room Air Weight: 212 lb 4.882 oz Body Mass Index (BMI) 32.3 Lab / Micro Data 06/21/23 11:45 06/23/23 08:45 Labs: Laboratory Results - last 24 hr 06/23/23 08:45: Sodium 140, Potassium 4.5, Chloride 105, Carbon Dioxide 30.0, Anion Gap 5, BUN 13, Creatinine 0.94, Estim Creat Clear Calc 62.60, Est GFR (MDRD) Af Amer 78, Est GFR (MDRD) Non-Af 64, BUN/Creatinine Ratio 13.8, Glucose 122 H, Calcium 8.7, Total Bilirubin 0.30, AST 29, ALT 28, Alkaline Phosphatase 173 H, Total Protein 6.2 L, Albumin 3.0 L, Globulin 3.2, Albumin/Globulin Ratio 0.9 Rhythm Strip Rhythm Strip: Sinus Rhythm Rate: 88 Ectopy: None Physical Exam Const alert, oriented x3 and no apparent distress General Appearance: cooperative, comfortable and well kempt Orientation / Consciousness: awake Exam Limitations: no limitations HEENT normocephalic, head/scalp atraumatic, hearing grossly normal bilaterally, moist oral mucous membranes and oropharynx normal Eyes PERRL, EOMs intact bilaterally and conjunctivae normal Neck no lymphadenopathy and supple Resp normal respiratory effort, no retractions, no use of accessory muscles and clear to auscultation bilaterally Resp Narrative: on 2L of oxygen by nasal canula Cardio regular rate, regular rhythm, S1 normal heart sound, S2 normal heart sound and no murmurs GI normal to inspection, nondistended, normoactive bowel sounds, soft to palpation, non-tender and non-distended Extremity normal to inspection, full ROM and no clubbing, cyanosis or edema General Extremity: no tenderness to palpation of joints or extremities Skin no rashes or lesions noted Neuro oriented x3, CN's II-XII intact bilaterally, moves all extremities and no focal motor deficits Sensorium / Orientation: awake and alert Motor Exam: strength 5/5 throughout Psych thought process normal, cooperative and affect normal Appearance: appropriate Assessment & Plan Assessment/Plan (1) Alcohol withdrawal: QUALIFIERS: Complication of substance-induced condition: uncomplicated Qualified Code(s): F10.930 - Alcohol use, unspecified with withdrawal, uncomplicated PLAN: Plan #Acute alcohol withdrawal on alcohol withdrawal protocol with ativan on thiamine, folic acid and multivite met criteria for vivitriol, so vivitriol IV ordered for today #Hypoxia: on 2L of oxygen. Weaned off oxygen. Titrate oxygen to maintain sats >90%. #History of PE: on xarelto #History of GERD s/p Jt fundoplication: on omeprazole. DVT prophylaxis: on xarelto. Disposition: for dc home once oxygen is weaned off. Charges/Coding Visit Charges Inpatient E&M: 79359 Subs Hosp L2
[2023-06-24 08:07] VITALS: BP 93/72; PULSE 81; RESP 18; TEMP 36.4; O2SAT 96
[2023-06-24] MEDS: Thiamine Hydrochloride 100 MG Tablet PO (08:14)
--- NOTE | 2023-06-24 09:56 | CASEMGMT ---
Addendum entered by Swetha Medina 06/24/23 10:51: Pt does not qualify for home oxygen. Pt nurse provided a phone number of transportation that brought pt to the hospital. TC to Karen who states she is the [employer] that picked up the ticket from [employer] that [employer] submitted to bring pt to the hospital. She states [employer] typically pays for this. Updated mission support specialist regarding this and that pt does not have transportation set up to go home this date. Original Note: JUSTEN HINKLE spoke with pt nurse and requested ambulatory pox this morning. JUSTEN HINKLE into pt room, pt denies need for any HHC at home. She does not feel she needs therapy at home. Asked pt who will pick her up today and she states it is [employer]. She states she thinks she has the number in her purse. JUSTEN HINKLE spoke with addiction counselor who stated pt was picking her up, made aware the reported he cannot drive. Nurse to get purse out of locked items to see if pt has phone number of [employer] to confirm they will transport pt home.
[2023-06-24 09:57] VITALS: O2SAT 90; O2SAT 93; O2SAT 97
[2023-06-24] MEDS: Naltrexone Microspheres 380 MG SYRINGE IM (11:42)
[2023-06-24] MEDS: Vivitrol ID Card 1 EACH MC (11:43)
[2023-06-24] MEDS: Vivitrol Administration Needles 1 EACH MC (11:43)
[2023-06-24 12:13] VITALS: BP 126/77; PULSE 90; RESP 18; TEMP 36.5; O2SAT 91
--- NOTE | 2023-06-24 15:09 | PCM.DC.SUM ---
Providers Date of Admission: 06/20/23 Date of Discharge: 06/24/23 Primary Care Physician: No Primary Care Phys Reason For Visit: ALCOHOL USE DISORDER Diagnosis Discharge Diagnosis (1) Alcohol withdrawal: Status: Acute Code(s): F10.939 - Alcohol use, unspecified with withdrawal, unspecified Qualifiers: Complication of substance-induced condition: uncomplicated Qualified Code(s): F10.930 - Alcohol use, unspecified with withdrawal, uncomplicated Plan #Acute alcohol withdrawal on alcohol withdrawal protocol with ativan on thiamine, folic acid and multivite met criteria for vivitriol, so vivitriol IV ordered for today #Hypoxia: on 2L of oxygen. Weaned off oxygen. Titrate oxygen to maintain sats >90%. #History of PE: on xarelto #History of GERD s/p Jt fundoplication: on omeprazole. DVT prophylaxis: on xarelto. Disposition: for dc home once oxygen is weaned off. Medications at Discharge Home Medications cholecalciferol (vitamin D3) 50 mcg (2,000 unit) capsule (D3-2000) 50 mcg PO DAILY 06/20/23 folic acid 1 mg tablet 1 mg PO QHS supplem 06/20/23 lisinopril 10 mg tablet 10 mg PO DAILY 06/20/23 promethazine 25 mg tablet 25 mg PO TID PRN nausea and vomiting 06/20/23 rivaroxaban 20 mg tablet (Xarelto) 20 mg PO DAILY 06/20/23 Hospital Course Operations None Summary of Care Provided Minutes Spent on Discharge: 45 Hospital Course: Patient is a 62-year-old female with a past medical history as outlined which includes PE on Xarelto as well as chronic GERD s/p Jt fundoplication. She was admitted via the ED on 06/20/2023 for acute alcohol withdrawal. She drinks about 4 cans of beer every day and could maintain sobriety at home. On admission she complained of burning discomfort in her chest and abdomen which resolved with GI cocktail. Urine tox was negative and serum alcohol level was less than 3. She was admitted and managed for alcohol detox. She was started on alcohol withdrawal protocol with phenobarbital, with adjunctive meds for symptomatic relief. Patient met requirement for Vivitrol and so she was given a dose of Vivitrol on 06/23/2023. LFTs were checked and were not elevated and within normal range. Her Xarelto was continued during her admission. She tolerated the 3-day detox process and did well. She was discharged to [facility] facility on 06/23/2023. However, it turned out that this was an outpatient service, not an inpatient facility. Patient was also noted to be weak and unable to ambulate by herself; she was a 2 person assist. Discharge was therefore cancelled and she was kept overnight. She refused home PT/OT. She had walking pulse ox which showed that she required 2L of oxygen. She was therefore discharged on 2L of oxygen. She was discharged on 06/24/2023. She is to follow up with her PCP within 1-2 weeks, and is to follow up at the [facility] within one week. She is follow-up with PCP within 1 to 2 weeks. She will benefit from a 2D echo on outpatient basis. Patient seen and examined prior to discharge. She felt well and had no complaints. She had an uneventful night. Review of systems otherwise negative. Labs and vitals reviewed. Home medication reviewed and reconciled. Physical Exam Const alert, oriented x3 and no apparent distress General Appearance: cooperative, comfortable and well kempt Orientation / Consciousness: awake Exam Limitations: no limitations HEENT normocephalic, head/scalp atraumatic, hearing grossly normal bilaterally, moist oral mucous membranes and oropharynx normal Mouth: oral and palatal mucosa normal Eyes PERRL, EOMs intact bilaterally and conjunctivae normal Neck no lymphadenopathy and supple Resp normal respiratory effort, no retractions, no use of accessory muscles and clear to auscultation bilaterally Resp Narrative: on 2L of oxygen by nasal canula Cardio regular rate, regular rhythm, S1 normal heart sound, S2 normal heart sound and no murmurs GI normal to inspection, nondistended, normoactive bowel sounds, soft to palpation, non-tender and non-distended Extremity normal to inspection, full ROM and no clubbing, cyanosis or edema General Extremity: no tenderness to palpation of joints or extremities Skin no rashes or lesions noted Neuro oriented x3, CN's II-XII intact bilaterally, moves all extremities and no focal motor deficits Sensorium / Orientation: awake and alert Motor Exam: strength 5/5 throughout Psych thought process normal, cooperative and affect normal Appearance: appropriate Weight / BMI Weight Weight: 212 lb 4.882 oz Body Mass Index (BMI) 32.3 ABG / Lab / Microbiology Data 06/21/23 11:45 06/23/23 08:45 D/C Instructions Discharge Diet: Low fat / Low cholesterol Weight Bearing Status: Weight bearing as tolerated Call your doctor if you observe: Fever of 101 or Higher, Shortness of breath, Dizziness, Swelling in the ankles and Chest pain Meaningful Use Info Meaningful Use Diagnoses (Choose all that apply): None applicable Discharge Plan Admission Admit Date/Time: 06/20/23 20:42 Primary Reason for Your Visit: acute alcohol withdrawal Attending Provider: Loren Feldman Primary Care Provider: Care Physician,No Primary Consulting Providers: Kenisha Dorantes; John Roth Instructions Patient Instructions: Alcohol Addiction, Alcohol Withdrawal: What to Expect, ED Alcohol Abuse Discharge Orders/Prescriptions Prescriptions: Continued promethazine 25 mg tablet 25 mg PO TID PRN (Reason: nausea and vomiting) lisinopril 10 mg tablet 10 mg PO DAILY Xarelto 20 mg tablet 20 mg PO DAILY Rx Instructions: must administer with evening meal cholecalciferol (vitamin D3) [D3-2000] 50 mcg (2,000 unit) capsule 50 mcg PO DAILY folic acid 1 mg tablet 1 mg PO QHS Patient Comments: TAKE 1 TABLET BY MOUTH EVERY NIGHT AT BEDTIME. Referrals / Follow Up: Care Physician,No Primary [Primary Care Provider] - Disposition Disposition (needs filled in before D/C Order can be placed): Home, Self Care Charges/Coding Visit Charges Inpatient E&M: 41283 Disch Hosp >30min
== END 2023-06-24 14:02 | disposition home or self-care (01) | DRG 897 ==
LOC: ED 20:16 → MS3 21:08
PROVIDERS: Admitting Provider Internal Medicine; Emergency Provider Emergency Medicine; Visit Provider Student in an Organized Health Care Education/Training Program
DX: F10.239 Alcohol dependence with withdrawal, unspecified (principal); J44.9 Chronic obstructive pulmonary disease, unspecified; K21.9 Gastro-esophageal reflux disease without esophagitis; Z79.01 Long term (current) use of anticoagulants; Z79.899 Other long term (current) drug therapy; Z86.711 Personal history of pulmonary embolism; Z87.891 Personal history of nicotine dependence; Y90.0 Blood alcohol level of less than 20 mg/100 ml
CPT/HCPCS: 36415; 71046; 80053; 80307; 82077; 82248; 83690; 83735; 84100; 84484; 85025; 85610; 93005; 94660; 97162; 99285; A4216